=== PATIENT | male | born 1940 | race Caucasian/White ===

== ENCOUNTER 2020-06-03 09:13 | Outpatient (REF) | payer MEDICARE, SELFPAY ==
[2020-06-03 10:24] LABS: Estimated Average Glucose 111 mg/dL; Hemoglobin A1c % 5.5 %
[2020-06-03 10:40] LABS: Alanine Aminotransferase 12 U/L (0-40); Anion Gap 13 (12-20); Blood Urea Nitrogen 25 mg/dL (9-16); Carbon Dioxide 26 mmol/L (22-29); Chloride 104 mmol/L (96-108); Estimated Glomerular Filt Rate 53; Glucose Fasting 104 mg/dL (60-99); Potassium 4.4 mmol/l (3.3-5.1); Sodium 139 mmol/L (135-145)
== END 2020-06-03 09:14 | disposition home or self-care (01) ==
LOC: HO.LAB 09:13
PROVIDERS: PCP Family Medicine; Visit Provider Family Medicine
DX: I10 Essential (primary) hypertension (principal); E11.9 Type 2 diabetes mellitus without complications; E78.00 Pure hypercholesterolemia, unspecified; Z79.899 Other long term (current) drug therapy
CPT/HCPCS: 80051; 82550; 82565; 82947; 83036; 84460; 84520

== ENCOUNTER 2020-06-11 10:43 | Outpatient (REF) | payer MEDICARE, SELFPAY | END 2020-06-11 10:44 | disposition home or self-care (01) | LOC: HO.LAB 10:43 | PROVIDERS: PCP Family Medicine; Visit Provider Internal Medicine | DX: Z20.828 Contact with and (suspected) exposure to other viral communicable diseases (principal) | CPT/HCPCS: 87635 ==

== ENCOUNTER → 2020-07-01 10:39 | Outpatient (REF) | payer MEDICARE, SELFPAY ==
--- NOTE | 2020-07-01 10:48 | ECG_ITS ---
Test Reason : BRADYCARDIA Blood Pressure : / mmHG Vent. Rate : 062 BPM Atrial Rate : 062 BPM P-R Int : 178 ms QRS Dur : 148 ms QT Int : 480 ms P-R-T Axes : 074 -65 011 degrees QTc Int : 487 ms Normal sinus rhythm Right bundle branch block Left anterior fascicular block Bifascicular block Abnormal ECG When compared with ECG of 28-JUN-2013 07:53, T wave inversion no longer evident in Anterior leads Referred By: Matt Nam Electronically Signed By:URBANO SERRANO MD
== END ==
LOC: HO.CARD 10:39
PROVIDERS: PCP Family Medicine; Visit Provider Family Medicine
DX: R00.1 Bradycardia, unspecified (principal)
CPT/HCPCS: 93005

== ENCOUNTER 2020-10-03 10:50 | Inpatient (IN) | payer MEDICARE, SELFPAY ==
[2020-10-03] VITALS (9 sets, daily range): BP systolic 142–203; BP diastolic 70–88; PULSE 58–71; RESP 16–21; TEMP 36.4–37.4; O2SAT 94–97; BMI 33.6
--- NOTE | ~2020-10-03 | FL_ITS ---
EXAMINATION: XR BARIUM SWALLOW CLINICAL INFORMATION: Posttraumatic swallowing problem COMPARISON: None TECHNIQUE: Modified esophagram with speech pathologist. FINDINGS: Patient swallowed combination of material from thin liquid to barium coated cookie. On a few swallows of thin and thick fluid there was minimal penetration which cleared rapidly upon swallowing and coughing. No aspiration was identified. FLUOROSCOPY TIME: 4.3 minutes DOSE AREA PRODUCT: 9.884 Gycentimeter squared FL/FL barium swallow modified IMPRESSION: A few episodes of minimal penetration which cleared upon swallowing and/or coughing with thin and thick liquid.
--- NOTE | ~2020-10-03 | CT_ITS ---
EXAMINATION: CT HEAD WITHOUT CONTRAST CLINICAL INFORMATION: Weakness COMPARISON: None TECHNIQUE: Contiguous axial imaging was performed from the skull base to vertex without intravenous administration of contrast. This CT examination was performed using dose optimization techniques as appropriate, variously including the following: *Automated exposure control *Adjustment of mA and/or kV according to patient size (this includes techniques or standardized protocols for targeted exams where dose is matched to indication/reason for exam; i.e. extremities or head) *Use of iterative reconstruction technique DLP: 739 mGy-cm FINDINGS: There is no evidence of acute intracranial hemorrhage or territorial infarction. No abnormal mass effect or midline shift is seen. Thornton to white matter differentiation is well preserved. No extra-axial fluid collections are identified. Generalized brain parenchymal volume loss. No evidence of hydrocephalus. Patchy and confluent subcortical and periventricular white matter low-attenuation changes. Bilateral basal ganglial lacunar infarcts. The osseous structures and soft tissues are normal. The mastoid air cells and visualized portions of the paranasal sinuses are well aerated. CT/CT head/brain wo con IMPRESSION: No acute intracranial pathology. Severe white matter small vessel ischemic changes and bilateral basal ganglial lacunar infarcts.
--- NOTE | ~2020-10-03 | MR_ITS ---
MRI OF THE BRAIN WITHOUT IV CONTRAST INDICATION: Stroke. COMPARISON: CTA head and neck performed earlier the same day. TECHNIQUE: Multiplanar multisequence MR imaging of the brain was obtained without IV contrast. FINDINGS: There is an acute infarct involving the right [place]. No mass effect and no hemorrhagic transformation. Partial loss of the distal cervical and intradural left vertebral artery flow voids in keeping with the CTA findings described on the earlier CTA of the head and neck. Please see that report for further details. There is global cerebral volume loss there is advanced chronic microangiopathy. There is no hydrocephalus, extra-axial surface collection, or herniation. There is no acute infarct on diffusion-weighted imaging. There is no intracranial hemorrhage on the gradient recalled echo acquisition. The cerebellar tonsils are normally positioned. The craniocervical junction is normal. Osseous marrow signal intensity is homogenous. The visualized soft tissues are unremarkable. MR/MR head/brain wo con IMPRESSION: - There is an acute infarct involving the right t[place]. No mass effect and no hemorrhagic transformation. - Partial loss of the distal cervical and intradural left vertebral artery flow voids in keeping with the CTA findings described on the earlier CTA of the head and neck. Please see that report for further details. - There is global cerebral volume loss there is advanced chronic microangiopathy.
--- NOTE | ~2020-10-03 | CT_ITS ---
EXAMINATION: CT angio head neck CLINICAL INFORMATION: Left-sided facial droop. Left-sided weakness. COMPARISON: CT scan of the head 10/03/2020. TECHNIQUE: [employer] images were obtained. A CT angiogram of the head and neck was performed in the arterial phase after the intravenous administration of 70 mL Omnipaque 350. Pre and delayed postcontrast images of the head were also obtained. MIP reconstructions were generated in multiple orientations at the acquisition workstation. Multiple three-dimensional surface rendered images and maximum intensity projection images were generated on a dedicated 3-D lab workstation. Arterial stenoses are measured in accordance with NASCET criteria or similar method if applicable. This CT examination was performed using dose optimization techniques as appropriate, including one or more of the following: Automated exposure control, iterative reconstruction, and adjustment of technique factors (mA and/or kVp) according to patient size (this includes techniques or standardized protocols for targeted exams where dose is matched to indication/reason for exam). Total exam dose-length product 2372 mGy-cm FINDINGS: Head: There is no acute intracranial hemorrhage. Postcontrast images reveal no abnormal mass or enhancement within the intracranial compartment. No intracranial mass effect or midline shift. Lateral and third ventricles are normal. No hydrocephalus. There are numerous foci of hypoattenuation throughout the periventricular white matter that most likely represent a chronic manifestation of small vessel ischemia. Thornton-white matter differentiation is otherwise preserved and there is no evidence of acute territorial infarct. The calvarium and skull base are intact. CT angiogram neck: Scattered atheromatous calcification involves the aortic arch apex. Origins of the major aortic branches are patent. Common carotid arteries are normal. Partially calcified atheromatous plaque involves both carotid bifurcations. No stenosis of the extracranial internal carotid arteries. Cervical segments of the vertebral arteries are patent. CT angiogram head: There is a 1.2 cm filling defect occluding the left intradural vertebral artery. The acuity of this finding is uncertain. The right intradural vertebral artery is patent and continues as the basilar artery. Partially calcified atheromatous plaque causes mild to moderate irregular narrowing of the vessel. Heavily calcified atheromatous plaque causes mild to moderate narrowing of the cavernous and supraclinoid segments of both internal carotid arteries, greater on the left side. There is diffuse cerebrovascular disease visualized within the anterior, middle, and posterior cerebral artery complexes. Other: Soft tissues of the neck including the thyroid gland are normal. Visualized lung apices are clear. No acute osseous finding. CT/CT angio head neck IMPRESSION: There is a 1.2 cm filling defect within the intradural segment of left vertebral artery. The acuity of this finding is uncertain. It may represent an acute thrombosis. In addition to this finding there is diffuse cerebrovascular disease with moderate irregular segment of narrowing involving multiple branches of the anterior, middle, and posterior cerebral artery complexes. Otherwise no stenosis of the cervical carotid or vertebral arteries. There are numerous chronic small vessel ischemic changes within the periventricular white matter. No evidence of acute territorial infarct or hemorrhage. No abnormal intracranial mass or enhancement.
--- NOTE | ~2020-10-03 | XR_ITS ---
EXAMINATION: XR CHEST CLINICAL INFORMATION: Patient with left-sided weakness COMPARISON: Chest radiograph from 10/03/2020 TECHNIQUE: Frontal view of the chest was obtained. FINDINGS: Bilateral low lung volumes. Prominence of the central pulmonary vasculature. There is no focal consolidation. There is no pneumothorax. The trachea is midline. No large pleural effusion. The cardiac mediastinal silhouette is stable. Aorta demonstrates tortuosity with atherosclerotic calcifications. Degenerative changes of the thoracic spine.1.9 cm sclerotic focus of the right humeral metadiaphysis, stable. Soft tissues are unremarkable. XR/XR chest 1V IMPRESSION: 1. Bilateral low lung volumes. 2. Prominence of the central pulmonary vasculature.
--- NOTE | ~2020-10-03 | XR_ITS ---
EXAMINATION: XR CHEST CLINICAL INFORMATION: Hypoxia COMPARISON: June 03, 2019 TECHNIQUE: AP portable view of the chest was obtained. FINDINGS: There is some indistinctness of the left hemidiaphragm which may be related to atelectasis or possible pneumonitis. Heart normal size. No evidence of pulmonary edema. No pneumothorax or significant pleural effusion. XR/XR chest 1V IMPRESSION: Probable left lower lobe disease which may be related to atelectasis or possible pneumonitis. No evidence of pulmonary edema.
--- NOTE | 2020-10-03 12:23 | ECG_ITS ---
Test Reason : WEAKNESS Blood Pressure : / mmHG Vent. Rate : 066 BPM Atrial Rate : 066 BPM P-R Int : 166 ms QRS Dur : 146 ms QT Int : 468 ms P-R-T Axes : 057 -71 072 degrees QTc Int : 490 ms Normal sinus rhythm Right bundle branch block Left anterior fascicular block Bifascicular block Abnormal ECG When compared with ECG of 01-JUL-2020 11:54, Nonspecific T wave abnormality now evident in Lateral leads Referred By: Cherie Delatorre Electronically Signed By:SOPHIE MCFARLANE MD
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
[2020-10-03 13:21] LABS: MANUAL DIFF FLAG NO
[2020-10-03 13:22] LABS: Basophils Percent Auto 0.4 % (0-2); Eosinophils Absolute Auto 0.1 X10*3/uL (0.0-0.4); Eosinophils Percent Auto 1.4 % (0-4); Hematocrit 40.4 % (42-52); Hemoglobin 13.7 g/dl (14.0-18.0); Imm Gran Abs Auto 0.02 X10*3/uL (0.00-0.03); Imm Gran Pct Auto 0.3 % (0.0-0.4); Lymphocytes Percent Auto 13.4 % (20-40); Mean Corpuscular HGB Conc 33.9 g/dl (31.0-36.0); Mean Corpuscular Volume 88.4 fL (80-98); Mean Platelet Volume 9.5 fL (9.4-12.4); Monocytes Absolute Auto 0.5 X10*3/uL (0.1-1.2); Monocytes Percent Auto 6.9 % (2-11); Neutrophils Percent Auto 77.6 % (45-73); Platelet Count 143 X10*3/uL (160-400); Red Blood Count 4.57 X10*6/uL (4.60-5.80); Red Cell Distribution Width 13.6 % (11.0-16.0); White Blood Count 7.7 X10*3/uL (4.8-10.8)
[2020-10-03 13:29] LABS: INTERNATIONAL NORM RATIO 1.1 (0.9-1.1); Prothrombin Time 12.9 SEC (10.8-13.0)
[2020-10-03 13:31] LABS: Partial Thromboplastin Time 39.8 SEC (24.1-38.0)
[2020-10-03 13:46] LABS: Alanine Aminotransferase 13 U/L (0-40); Albumin Level 4.2 g/dL (3.5-5.0); Alkaline Phosphatase 84 U/L (39-117); Anion Gap 12 (12-20); Aspartate Amino Transferase 22 U/L (5-37); Bilirubin Direct 0.4 mg/dL (0.0-0.5); Bilirubin Total 1.3 mg/dL (0.0-1.0); Blood Urea Nitrogen 29 mg/dL (9-16); Calcium 9.3 mg/dL (8.4-10.2); Carbon Dioxide 30 mmol/L (22-29); Chloride 100 mmol/L (96-108); Creatinine Clr Calc Pharmacy 41.4; Estimated Glomerular Filt Rate 50; Glucose Random 105 mg/dL (60-115); Magnesium 2.4 mg/dL (1.6-2.6); Potassium 4.2 mmol/L (3.3-5.1); Sodium 138 mmol/L (135-145); Total Protein 6.6 g/dL (6.5-8.0)
[2020-10-03 13:55] LABS: B Type Natriuretic Peptide 70 pg/mL (<100); Troponin-I High Sensitivity 619.8 ng/L (<3.5-35.0)
[2020-10-03 14:16] LABS: Influenza A PCR NEGATIVE (Negative); Influenza B PCR NEGATIVE (Negative); Resp Syncy Virus RNA Qual PCR NEGATIVE (Negative); SARS COV2 PCR INHOUSE NEGATIVE (Negative)
[2020-10-03 14:20] LABS: C Reactive Protein 0.89 mg/dL (< or = 0.50)
[2020-10-03 14:56] LABS: Erythrocyte Sedimentation Rate 6 MM/HR (0-15)
[2020-10-03] MEDS: Aspirin 325 MG TABLET PO (15:00)
[2020-10-03] MEDS: Atorvastatin Calcium 80 MG TABLET PO (15:00)
--- NOTE | 2020-10-03 17:45 | PC.NURSE ---
pt incontinuent of large amount of urine. Pt was cleaned and repositioned. He arrived from home in a saturated depends.
[2020-10-03 18:33] LABS: Troponin-I High Sensitivity 540.1 ng/L (<3.5-35.0)
[2020-10-03 19:41] LABS: Glucose Urine UA NEG (NEG); Leukocyte Esterase Urine NEG (NEG); Nitrite Urine NEG (NEG); PH 6.5 (5.0-8.0); Urine Blood NEG (NEG); Urine Ketones NEG (NEG); Urine Protein NEG (NEG-TRACE)
[2020-10-03 19:42] LABS: Appearance Urine CLEAR; Color Urine YELLOW
--- NOTE | 2020-10-03 22:19 | PC.NURSE ---
Assumed care of pt at 1900. At about [id number], pt assessed and neuros assessed. Pt with facial droop, discussed with provider MARY Crespo who states it was present on arrival, with hx of facial droop. CT head negative for acute pathology. Pt with equal strength bilaterally in upper extremities. Pt with also equal dorsiflexion and plantarflexion in bilateral lower extremities. Speech intelligible but slightly garbled.
--- NOTE | 2020-10-03 22:23 | PC.NURSE ---
At approximately 2210, [facility] notified staff auditor of pt's facial droop. department administrator Tosin made this RN aware of concerns. This RN performed neuro assessment. Pt neuros remain unchanged from previous assessment. Dr Giron made aware. RADHA Graham contacted MARY Crespo to discuss pt's presentation and confirm no change in presentation since arrival.
[2020-10-03] MEDS: Doxazosin Mesylate 2 MG TABLET 4 MG PO (23:57)
[2020-10-03] MEDS: Metoprolol Succinate ER 25 MG TAB.ER.24H PO (23:58)
[2020-10-03] MEDS: metFORMIN HCl 500 MG TABLET PO (23:58)
[2020-10-03] MEDS: Donepezil HCl 5 MG TABLET PO (23:58)
--- NOTE | 2020-10-03 23:58 | PC.NURSE ---
PATIENT TOOK MEDS WHOLE. TOLERATED WELL. HEARING AIDE PLACED IN A GREEN CUP AT THE BEDSIDE. LEFT ARM WEAKER THAN RIGHT, SAME EARLIER. BED ADJUSTED, LIGHTS DIMMED AND CURTAIN CLOSED PER PATIENT REQUEST.
[2020-10-04] VITALS (13 sets, daily range): BP systolic 109–207; BP diastolic 72–96; PULSE 16–73; RESP 14–25; TEMP 36.2–37.2; O2SAT 94–97
--- NOTE | 2020-10-04 | ECG_ITS ---
Test Reason : BRADYCARDIA Blood Pressure : / mmHG Vent. Rate : 060 BPM Atrial Rate : 060 BPM P-R Int : 166 ms QRS Dur : 146 ms QT Int : 464 ms P-R-T Axes : 072 -62 041 degrees QTc Int : 464 ms Normal sinus rhythm Right bundle branch block Left anterior fascicular block Bifascicular block Abnormal ECG When compared with ECG of 04-OCT-2020 10:35, No significant change was found Referred By: Rina Akins Electronically Signed By:Pablo Gerber
--- NOTE | 2020-10-04 07:16 | PC.NURSE ---
pt is currently eating breakfast
--- NOTE | 2020-10-04 09:10 | ECG_ITS ---
Test Reason : STROKE Blood Pressure : / mmHG Vent. Rate : 068 BPM Atrial Rate : 068 BPM P-R Int : 154 ms QRS Dur : 140 ms QT Int : 448 ms P-R-T Axes : 057 -72 038 degrees QTc Int : 476 ms Normal sinus rhythm Right bundle branch block Left anterior fascicular block Bifascicular block Abnormal ECG When compared with ECG of 03-OCT-2020 12:51, No significant change was found Referred By: Tessa Bradley Electronically Signed By:SOPHIE MCFARLANE MD
--- NOTE | 2020-10-04 09:15 | PC.NURSE ---
THIS RN SPOKE TO PT'S FOR AN UPDATE, AFTER GETTING OFF THE PHONE THIS RN CONSULTED WITH GIUSEPPE HERNANDEZ IN REGARDS TO PT'S CARE/TREATMENT/HISTORY. IN REPORTS THIS MORNING FROM PRIOR [facility] GL[facility] SPREADER WAS THAT PT'S IS IN THE ED FOR CASE MANAGEMENT PLACEMENT, WITH HX OF RIGHT SIDED FACIAL DROOP AND LEFT SIDED WEAKNESS TO BE AT BASELINE. GIUSEPPE HERNANDEZ, SKYE HERNANDEZ, AND THIS RN TO BEDSIDE TO EVALUATE THE PT, PT FOUND TO HAVE LEFT SIDE FACIAL DROOP/LEFT SIDED WEAKNESS AND SLURRED SPEECH. JAMARCUS, GENETICIST NOTIFIED BY GIUSEPPE AND PLAN FOR HEAD CT AND UPDATED BY SKYE HERNANDEZ.
--- NOTE | 2020-10-04 09:48 | PC.NURSE ---
Pt with left sided facial droop and left extremity weakness. IV inserted and sent for CT/CTA of brain.
[2020-10-04] MEDS: iohexoL 350 MG/ML 100 ML INFUS..BTL IV (10:07)
--- NOTE | 2020-10-04 10:17 | MHC.STROKE ---
Addendum entered by Angie Guidry RN 10/06/20 14:57: I MET WITH THE PATIENT TO REVIEW HIS DIAGNOSIS. ONSET OF SYMPTOMS WAS CLARIFIED. HE SAID ON Monday10/02/20 HE WAS FINE WHEN HE GOT UP THEN ALL OF A SUDDEN AT 0900 HIS LEFT SIDE BECAME WEAK AND HE FELL. HE MENTIONED THAT HE FELL TWICE. HE DID NOT SEEK MEDICAL ATTENTION UNTIL 10/03/20 AM. WE REVIEWED THE MRI SCREENSHOT OF HIS STROKE LOCATION RIGHT ALEX. I DESCRIBED THAT HIS SWALLOWING AND LEFT SIDE WILL BE AFFECTED IN THIS AREA. HIS BP WAS HIGH WHEN HE CAME IN AND HE DID MENTION THAT HE HAS A BP CUFF AT HOME AND CHECKS HIS BP EVERYDAY. IT HAS BEEN HIGH AT TIMES. WE DISCUSSED HIS PLAN OF CARE. I PROVIDED HIM EDUCATION WITH THE STROKE EDUCATION BOOKLET. HE WAS ALERT, ORIENTED AND VERY INTERESTED IN HIS STROKE DIAGNOSIS. I ANSWERED ALL OF HIS QUESTIONS. I WLL CONTINUE TO FOLLOW. Original Note: 09 NOTIFIED BY ED OF INPATIENT STROKE PATIENT. PATIENT INITIALLY ARRIVED VIA EMS ON 10/03/20 AT 1050, PRE-NOTIFIED AT 1041 FOR WEAKNESS, FALL. LAST KNOWN WELL 10/01/20. HE HAD BEEN FEELING WEAK SINCE COVID SHOT ON 10/01/20. BASELINE RIGHT DROOP. NIHSS = 0. CT HEAD, NO BLEED OLD INFARCTS NOTED. BP ELEVATED AT 203/86. HR 69, PASSED SWALLOW SCREEN AT 1200. ASPIRIN GIVEN, CARDIOLOGY CONSULTED (SEE ED NOTE). PMH: HTN, HDL, DM, DEPRESSION, AAA REPAIR, LEFT EAR VENETIE IRA. I SPOKE WITH MARY CHIN THIS AM 0902, SHE NOTIFIED ME OF A CHANGE IN PATIENT'S CONDITION, LEFT HEMIPARESIS, DYSARTHRIA, ATAXIA NIHSS = 14. CT/CTA H/N DONE. OUT OF THE WINDOW FOR TPA BASED ON LKW ON 10/03/20 AT [address]. I DID NOTIFY DR. BONILLA. PATIENT WILL BE ADMITTED FOR CVA. AVOID HYPOTENSION. I WILL CONTINUE TO FOLLOW.
[2020-10-04] MEDS: 0.9 % Sodium Chloride 1,000 ML 999 ML IVCONT (10:26)
[2020-10-04 10:30] LABS: Hemoglobin 13.5 g/dl (14.0-18.0); Imm Gran Abs Auto 0.02 X10*3/uL (0.00-0.03); Imm Gran Pct Auto 0.3 % (0.0-0.4); MANUAL DIFF FLAG SCAN; Mean Corpuscular Volume 88.9 fL (80-98); PLT CLUMP 1; SCAN SMEAR FLAG 1
[2020-10-04 10:31] LABS: Basophils Percent Auto 0.1 % (0-2); Eosinophils Absolute Auto 0.2 X10*3/uL (0.0-0.4); Eosinophils Percent Auto 2.5 % (0-4); Hematocrit 39.4 % (42-52); Lymphocytes Absolute Auto 0.9 X10*3/uL (1.2-4.9); Lymphocytes Percent Auto 12.3 % (20-40); Mean Corpuscular HGB Conc 34.3 g/dl (31.0-36.0); Mean Corpuscular Hemoglobin 30.5 pg (27.0-33.0); Mean Platelet Volume 9.4 fL (9.4-12.4); Monocytes Absolute Auto 0.5 X10*3/uL (0.1-1.2); Monocytes Percent Auto 6.1 % (2-11); Neutrophils Absolute Auto 5.9 X10*3/uL (2.0-8.3); Neutrophils Percent Auto 78.7 % (45-73); Platelet Count 152 X10*3/uL (160-400); Red Blood Count 4.43 X10*6/uL (4.60-5.80); Red Cell Distribution Width 13.7 % (11.0-16.0); White Blood Count 7.5 X10*3/uL (4.8-10.8)
[2020-10-04 10:38] LABS: INTERNATIONAL NORM RATIO 1.1 (0.9-1.1); Prothrombin Time 13.3 SEC (10.8-13.0)
[2020-10-04 11:00] LABS: Alanine Aminotransferase 13 U/L (0-40); Albumin Level 3.8 g/dL (3.5-5.0); Alkaline Phosphatase 78 U/L (39-117); Anion Gap 12 (12-20); Aspartate Amino Transferase 20 U/L (5-37); Bilirubin Direct 0.5 mg/dL (0.0-0.5); Bilirubin Total 1.4 mg/dL (0.0-1.0); Blood Urea Nitrogen 32 mg/dL (9-16); Carbon Dioxide 28 mmol/L (22-29); Chloride 99 mmol/L (96-108); Creatinine Clr Calc Pharmacy 40.5; Estimated Glomerular Filt Rate 48; Glucose Random 138 mg/dL (60-115); Magnesium 2.3 mg/dL (1.6-2.6); Potassium 3.9 mmol/L (3.3-5.1); Sodium 135 mmol/L (135-145); Total Protein 6.1 g/dL (6.5-8.0)
--- NOTE | 2020-10-04 11:00 | PC.NURSE ---
Pt noted to have wheezes to LLL. Occasional use of accessory muscles. Sats 94%. Tessa HERNANDEZ aware of findings. Instructed to DC IVF. PT received about 300ml out of the 1liter bag.
[2020-10-04 11:10] LABS: Troponin-I High Sensitivity 217.7 ng/L (<3.5-35.0)
--- NOTE | 2020-10-04 11:30 | PC.NURSE ---
patient a&ox3, monitor worker intact, vitals stable, patient has audible wheezing, lt facial droop, lt arm flaccid, left leg weakness-unable to follow commands to wiggle toes or move hand, pt denies pain/discomfort, will continue to monitor.
--- NOTE | 2020-10-04 11:59 | PM.NEUROCN ---
History of Present Illness Data of Consult Service Date: 10/04/20 Primary Care Provider: Matt Nam MD 80 years old man who came to hospital yesterday with generalized weakness. He was evaluated for any possible cause but no obvious cause was noted including no indication of a stroke. He was waiting further evaluation by physical therapy and occupational therapy to figure out if he could be sent back to rehab or [place] [facility] versus admission. Apparently there was no obvious reason for admission. Last time he was evaluated at about 10:00 o'clock in the evening. Next morning when nursing evaluated him he was noted to have left-sided weakness suggestive of acute stroke. Because of his underlying condition and significant delay he was not treated with intravenous tPA like treatment. He was not in any distress. Review of Systems Review of Systems: Generalized weakness for which she was in hospital. [facility] Past Medical History Medical History Depression Diabetes 1.5, managed as type 2 Hyperlipidemia Hypertension Social History Social History Alcohol intake: never Smoking Status: Never smoker Use of substances other than those prescribed or required for medical reasons: No Advance Directives: No Advance Directives Information Provided: Yes Meds Allergies Allergy/AdvReac Type Severity Reaction Status Date / Time No Known Allergies Allergy Verified 10/03/20 11:07 [No Known Allergies*] Active Medications: Current Medications Generic Name Dose Route Start Last Admin Trade Name Freq PRN Reason Stop Dose Admin Pharmacy Consult 1 each 10/03/20 12:23 Consult Rx Perform Med Rec MISCELLANE ONCE PRN Consult order Home Medications Medication Instructions Recorded Confirmed Last Taken Type Symbicort 10/03/20 Unknown History aspirin 81 mg PO DAILY 10/03/20 10/03/20 Unknown History bupropion HCl 150 mg PO DAILY 10/03/20 10/04/20 Unknown History cholecalciferol (vitamin D3) 10/03/20 Unknown History [Vitamin D3] donepezil [Aricept] 5 mg PO BEDTIME 10/03/20 10/04/20 Unknown History doxazosin 4 mg PO BEDTIME 10/03/20 10/04/20 Unknown History metformin 500 mg PO BEDTIME 10/03/20 10/04/20 Unknown History metoprolol succinate 25 mg PO BEDTIME 10/03/20 10/04/20 Unknown History simvastatin 20 mg PO BEDTIME 10/03/20 10/04/20 Unknown History valsartan [Diovan] 320 mg PO DAILY 10/03/20 10/04/20 Unknown History Physical Exam Vital Signs: Vital Signs: Last Vital Signs Temp 98.7 F 10/04/20 11:30 Pulse 59 10/04/20 11:30 Resp 17 10/04/20 11:30 BP 139/75 10/04/20 11:30 Pulse Ox 96 10/04/20 11:30 Body Mass Index 33.6 He was alert and awake able to speak though with the mask I was wearing communication was somewhat limited. He was following commands. There was left central type of facial weakness moderate to severe left arm weakness and mild left leg weakness. There was no neglect. Visual goldman seem to be okay. Results Labs CBC & Chem 7: 10/04/20 10:24 10/04/20 10:24 Labs: Short CBC 10/03/20 10/04/20 Range/Units 13:13 10:24 WBC 7.7 7.5 (4.8-10.8) X10*3/uL Hgb 13.7 L 13.5 L (14.0-18.0) g/dl Hct 40.4 L 39.4 L (42-52) % Plt Count 143 L 152 L (160-400) X10*3/uL BMP 10/03/20 10/04/20 13:13 10:24 Sodium 138 135 Potassium 4.2 3.9 Chloride 100 99 Carbon Dioxide 30 H 28 BUN 29 H 32 H Creatinine 1.38 1.41 H Calcium 9.3 9.0 Cardiac Enzymes 10/03/20 Range/Units 13:13 Total Creatine Kinase 334 H D (38-174) U/L Liver Function 10/03/20 10/04/20 Range/Units 13:13 10:24 Total Bilirubin 1.3 H 1.4 H (0.0-1.0) mg/dL Direct Bilirubin 0.4 0.5 (0.0-0.5) mg/dL AST 22 20 (5-37) U/L ALT 13 13 (0-40) U/L Alkaline Phosphatase 84 78 (39-117) U/L Albumin 4.2 3.8 (3.5-5.0) g/dL Urine 10/03/20 Range/Units 19:32 Urine Color YELLOW Urine Appearance CLEAR Urine pH 6.5 (5.0-8.0) Ur Specific [place] 1.010 (1.005-1.025) Urine Protein NEG (NEG-TRACE) MG/DL Urine Glucose (UA) NEG (NEG) MG/DL Assessment and Plan (1) Left hemiparesis: Status: Acute 80 years old man with underlying history of mixed vascular plus degenerative dementia came to hospital with generalized weakness. While he was awaiting further evaluation by physical therapy and occupational therapy for possible transfer to a rehab or [place] [facility], after sleeping overnight, he was noted to have left hemiparesis. This was likely from an ischemic infarction. Onset of symptoms were unclear and I was not even sure if part of this started before he came to hospital. In any case he was not treated with intravenous tPA. His vascular imaging did not reveal any middle cerebral artery disease that could be treated with catheter. At this time my recommendations are to admit him and start him on anti-platelet agent, avoid hypotension, hydrate him, he has consult physical and occupational therapy, have speech and swallowing well, and obtain an MRI brain without contrast for precise definition of his lesion. His troponin level was high suggestive of some element of cardiomyopathy, for which an echocardiogram is recommended
--- NOTE | 2020-10-04 13:16 | PC.NURSE ---
hospitalist in to see patient for admission
--- NOTE | 2020-10-04 13:28 | PC.NURSE ---
patient a&ox3, answering questions appropriately, monitor car operator sinus corazon upper 50s, vitals stable, pt awaiting for inpt bed, will continue to monitor.
--- NOTE | 2020-10-04 13:47 | P.HPHOSP_ITS ---
History of Present Illness Date of Service: 10/04/20 Chief Complaint: weakness This is an 80 year old male who presented to the ED 10/03 with weakness. He received his first covid vaccine earlier in the weak and had been feeling tired since that time. His blood pressure was initially 203/86. His first troponin was elevated at 619. He had no ischemic changes on his EKG and no chest pain. His repeat troponin was lower at 540.1 and the third was 217.7. The remainder of his workup was unremarkable. Given lack of symptoms and decreasing cardiac enzymes, he stayed in the ED to be evaluated by case management for possible placement. This morning he was noted to have left sided facial droop and extremity weakness and well as change in speech. He underwent a brain CTA which showed filling defect within the intradural segment of the left vertebral artery. He was evaluated by neurology and the decision was made to admit him for further management. Review of Systems Review of Systems: Yes all other systems are reviewed and are negative Constitutional: Constitutional: Denies chills and Denies fever(s) Cardiovascular: Cardiovascular: Denies chest pain and Denies dyspnea Respiratory: Respiratory: Denies cough and Denies dyspnea Gastrointestinal: Gastrointestinal: Denies abdominal pain [facility] Medical History (Updated 10/04/20 @ 14:05 by MARY Denton) Dementia Depression Diabetes 1.5, managed as type 2 Hyperlipidemia Hypertension Functional capacity: independent ambulation Family history: reviewed and not pertinent Social History (Updated 10/04/20 @ 14:17 by MARY Denton) Alcohol intake: never Smoking Status: Former smoker Use of substances other than those prescribed or required for medical reasons: No Advance Directives: No Advance Directives Information Provided: Yes Meds Allergies Allergy/AdvReac Type Severity Reaction Status Date / Time No Known Allergies Allergy Verified 10/03/20 11:07 [No Known Allergies*] Active Medications: Current Medications Generic Name Dose Route Start Last Admin Trade Name Freq PRN Reason Stop Dose Admin Pharmacy Consult 1 each 10/03/20 12:23 Consult Rx Perform Med Rec MISCELLANE ONCE PRN Consult order Home Medications Medication Instructions Recorded Confirmed Last Taken Type Symbicort 10/03/20 Unknown History aspirin 81 mg PO DAILY 10/03/20 10/03/20 Unknown History bupropion HCl 150 mg PO DAILY 10/03/20 10/04/20 Unknown History cholecalciferol (vitamin D3) 10/03/20 Unknown History [Vitamin D3] donepezil [Aricept] 5 mg PO BEDTIME 10/03/20 10/04/20 Unknown History doxazosin 4 mg PO BEDTIME 10/03/20 10/04/20 Unknown History metformin 500 mg PO BEDTIME 10/03/20 10/04/20 Unknown History metoprolol succinate 25 mg PO BEDTIME 10/03/20 10/04/20 Unknown History simvastatin 20 mg PO BEDTIME 10/03/20 10/04/20 Unknown History valsartan [Diovan] 320 mg PO DAILY 10/03/20 10/04/20 Unknown History Physical Exam Vital Signs and Narrative: Vital Signs: Last Vital Signs Temp 98.8 F 10/04/20 13:27 Pulse 58 10/04/20 13:27 Resp 18 10/04/20 13:27 BP 109/76 10/04/20 13:27 Pulse Ox 95 10/04/20 13:27 Body Mass Index 33.6 Const: General: comfortable, alert and awake Nutritional Appearance: well nourished Orientation/consciousness: patient oriented x3 HENMT: Head: Yes normocephalic and Yes atraumatic Eyes: Sclerae: sclerae normal Chest: Chest palpation & inspection: normal inspection of the chest Resp: Effort & Inspection: normal respiratory effort and no respiratory distress Cardio: Rate: regular rate Rhythm: regular rhythm GI: Other: ventral hernia Palpation (GI): Soft to palpation and nontender Skin: General skin exam: no rashes or lesions noted Neuro: Other: left hemiparesis, left facial droop, tongue deviation to left side, garbled speech. Full ROM right upper and lower extremities General: patient oriented x3 Speech: Abnormal speech present garbled Results Labs CBC and Chem 7: 10/04/20 10:24 10/04/20 10:24 Labs: Laboratory Results - last 24 hr 10/03/20 10/03/20 10/03/20 13:13 13:13 13:14 MCV MCH MCHC RDW Plt Count MPV Immature Gran % (Auto) Neut % (Auto) Lymph % (Auto) [place] % (Auto) Eos % (Auto) Baso % (Auto) Lymph # (Auto) [place] # (Auto) Eos # (Auto) Baso # (Auto) Abs Immat Gran (auto) Absolute Neuts (auto) Absolute Nucleated RBC Nucleated RBC % (auto) Smear Tech's Comments ESR 6 PT INR APTT Anion Gap Estim Creat Clear Calc Estimated GFR Random Glucose Calcium Magnesium Total Bilirubin Direct Bilirubin AST ALT Alkaline Phosphatase Total Creatine Kinase 334 H D Troponin I High Sens 619.8 H C-Reactive Protein 0.89 H B-Natriuretic Peptide 70 Total Protein Albumin Urine Color Urine Appearance Urine pH Ur Specific [place] Urine Protein Urine Glucose (UA) Urine Ketones Urine Blood Urine Nitrite Ur Leukocyte Esterase Coronavirus (PCR) Influenza Type A (PCR) Influenza Type B (PCR) RSV RNA Qual (PCR) 10/03/20 10/03/20 10/03/20 13:14 17:48 19:32 MCV MCH MCHC RDW Plt Count MPV Immature Gran % (Auto) Neut % (Auto) Lymph % (Auto) [place] % (Auto) Eos % (Auto) Baso % (Auto) Lymph # (Auto) [place] # (Auto) Eos # (Auto) Baso # (Auto) Abs Immat Gran (auto) Absolute Neuts (auto) Absolute Nucleated RBC Nucleated RBC % (auto) Smear Tech's Comments ESR PT INR APTT Anion Gap Estim Creat Clear Calc Estimated GFR Random Glucose Calcium Magnesium Total Bilirubin Direct Bilirubin AST ALT Alkaline Phosphatase Total Creatine Kinase Troponin I High Sens 540.1 H C-Reactive Protein B-Natriuretic Peptide Total Protein Albumin Urine Color YELLOW Urine Appearance CLEAR Urine pH 6.5 Ur Specific [place] 1.010 Urine Protein NEG Urine Glucose (UA) NEG Urine Ketones NEG Urine Blood NEG Urine Nitrite NEG Ur Leukocyte Esterase NEG Coronavirus (PCR) NEGATIVE Influenza Type A (PCR) NEGATIVE Influenza Type B (PCR) NEGATIVE RSV RNA Qual (PCR) NEGATIVE 10/04/20 10/04/20 10/04/20 10:24 10:24 10:24 MCV 88.9 MCH 30.5 MCHC 34.3 RDW 13.7 Plt Count 152 L MPV 9.4 Immature Gran % (Auto) 0.3 Neut % (Auto) 78.7 H Lymph % (Auto) 12.3 L [place] % (Auto) 6.1 Eos % (Auto) 2.5 Baso % (Auto) 0.1 Lymph # (Auto) 0.9 L [place] # (Auto) 0.5 Eos # (Auto) 0.2 Baso # (Auto) 0.0 Abs Immat Gran (auto) 0.02 Absolute Neuts (auto) 5.9 Absolute Nucleated RBC 0.000 Nucleated RBC % (auto) 0.0 Smear Tech's Comments Not Reportable ESR PT 13.3 H INR 1.1 APTT 41.0 H Anion Gap 12 Estim Creat Clear Calc 40.5 Estimated GFR 48 Random Glucose 138 H Calcium 9.0 Magnesium 2.3 Total Bilirubin 1.4 H Direct Bilirubin 0.5 AST 20 ALT 13 Alkaline Phosphatase 78 Total Creatine Kinase Troponin I High Sens C-Reactive Protein B-Natriuretic Peptide Total Protein 6.1 L Albumin 3.8 Urine Color Urine Appearance Urine pH Ur Specific [place] Urine Protein Urine Glucose (UA) Urine Ketones Urine Blood Urine Nitrite Ur Leukocyte Esterase Coronavirus (PCR) Influenza Type A (PCR) Influenza Type B (PCR) RSV RNA Qual (PCR) 10/04/20 10:24 MCV MCH MCHC RDW Plt Count MPV Immature Gran % (Auto) Neut % (Auto) Lymph % (Auto) [place] % (Auto) Eos % (Auto) Baso % (Auto) Lymph # (Auto) [place] # (Auto) Eos # (Auto) Baso # (Auto) Abs Immat Gran (auto) Absolute Neuts (auto) Absolute Nucleated RBC Nucleated RBC % (auto) Smear Tech's Comments ESR PT INR APTT Anion Gap Estim Creat Clear Calc Estimated GFR Random Glucose Calcium Magnesium Total Bilirubin Direct Bilirubin AST ALT Alkaline Phosphatase Total Creatine Kinase Troponin I High Sens 217.7 H D C-Reactive Protein B-Natriuretic Peptide Total Protein Albumin Urine Color Urine Appearance Urine pH Ur Specific [place] Urine Protein Urine Glucose (UA) Urine Ketones Urine Blood Urine Nitrite Ur Leukocyte Esterase Coronavirus (PCR) Influenza Type A (PCR) Influenza Type B (PCR) RSV RNA Qual (PCR) Imaging Radiologist's Impressions: Impressions Head CT 10/03/20 13:10 IMPRESSION: No acute intracranial pathology. Severe white matter small vessel ischemic changes and bilateral basal ganglial lacunar infarcts. Chest X-Ray 10/03/20 13:11 IMPRESSION: Probable left lower lobe disease which may be related to atelectasis or possible pneumonitis. No evidence of pulmonary edema. Chest X-Ray 10/04/20 09:10 IMPRESSION: 1. Bilateral low lung volumes. 2. Prominence of the central pulmonary vasculature. Head/Neck CTA 10/04/20 09:34 IMPRESSION: There is a 1.2 cm filling defect within the intradural segment of left vertebral artery. The acuity of this finding is uncertain. It may represent an acute thrombosis. In addition to this finding there is diffuse cerebrovascular disease with moderate irregular segment of narrowing involving multiple branches of the anterior, middle, and posterior cerebral artery complexes. Otherwise no stenosis of the cervical carotid or vertebral arteries. There are numerous chronic small vessel ischemic changes within the periventricular white matter. No evidence of acute territorial infarct or hemorrhage. No abnormal intracranial mass or enhancement. Assessment and Plan (1) Left hemiparesis: Status: Acute This is an 80 year old male with DM, HTN, HLD, AAA s/p repair who presented to the ED with weakness now found to have left hemiparesis and facial droop stroke left side weakness, facial droop Brain CTA with filling defect with in left vertebral artery eval by neuro. rec admission, asa ,statin, mri not a candidate for tpa -tele monitoring, frequent neuro checks -MRI, echo -PT, OT, speech evaluation -aspirin, statin -BP meds on hold CKD 3 SCr near baseline, follow renal function closely DM Hold metformin POC's on lower side. q2h POC. no SSI for now Hypertension, elevated in 200s on arrival Hold blood pressure meds in setting of stroke Follow BP meds closely Elevated trops Initial trop 650, no ekg changes, repeat continue to trend down no chest pain -echo Hyperlipidemia Changed to high-intensity statin Dementia Continue Aricept DVT prophylaxis-heparin Code status-full code This case was discussed with Dr. Wallace
[2020-10-04 13:48] LABS: B Type Natriuretic Peptide 49 pg/mL (<100)
[2020-10-04 14:33] LABS: Glucose, Whole Blood 69 mg/dL (60-115)
--- NOTE | 2020-10-04 15:10 | PM.EVENT ---
Event Note Date of Service: 10/04/20 Event Note: Patient seen and examined. Case discussed with MARY Ku. Agree with her history and physical + plan as documented above 80 yo M being admitted for acute CVA. For full details see H&P. Stroke work up.
[2020-10-04] MEDS: Dextrose 5 % and 0.9 % NaCl 1,000 ML 100 ML IVCONT (15:33)
--- NOTE | 2020-10-04 15:42 | PC.NURSE ---
patient returned from MRI, given bed bath as he was wet from urinating, pt was moved to an inpt bed for comfort, rn cardiac cath reapplied, ivf started per order, will recheck poc in 30 minutes, will continue to monitor.
--- NOTE | 2020-10-04 16:02 | PC.NURSE ---
Patient a&o, cardiac exercise specialist intact, vitals stable, ivf running per order, pt continues to have left facial droop, lt arm flaccid and lt leg weakness-pt is able to move left leg minimally, no c/o pain or discomfort, call sneed within reach, will continue to monitor.
[2020-10-04 16:23] LABS: Glucose, Whole Blood 85 mg/dL (60-115)
[2020-10-04] MEDS: Dextrose 5 % and 0.45 % NaCl 1,000 ML 80 ML IVCONT (17:31)
--- NOTE | 2020-10-04 18:15 | PC.NURSE ---
patient a&ox3, full bed change performed as patient is incontinent, vitals obtained, pt hypertensive, sinus corazon cardiac rn, patient speech is clearer, lt facial droop has lessoned, pt now able to lift/hold left arm and able to squeeze this nurses hand upon demand, left leg has movement but still unable to purposeful move on demand, patient continues to have audible wheezing, will continue to monitor.
[2020-10-04 18:52] LABS: Glucose, Whole Blood 96 mg/dL (60-115)
--- NOTE | 2020-10-04 19:10 | PC.NURSE ---
provider notified about pts bp, will continue to monitor and document, no interventions at this time.
[2020-10-04] MEDS: Heparin Sodium,Porcine 5,000 UNIT/ML VIAL 5000 UNIT SUBCUT (19:20)
--- NOTE | 2020-10-04 20:16 | PC.NURSE ---
patients hr dipping into the 40s at time, provider- Tashi was notified, will repeat ekg per provider request, patient is currently asymptomatic of the HR- continues to be a&o, watching tv, blood pressure has decreased some, pt neuro- lt facial droop has lessoned, lt arm patient still has purposeful movement and left leg he moves on bed but not on command, he answers all questions appropriately and has been speaking with his on the phone, will continue to monitor.
[2020-10-04 21:49] LABS: Glucose, Whole Blood 94 mg/dL (60-115)
--- NOTE | 2020-10-04 22:15 | PC.NURSE ---
patient a&o, surgical lead sinus corazon-ekg was performed & provider is aware, patient has no c/o pain or discomfort, patient continues to have purposeful movement to LUE and able to lift/move on command, lt facial droop mild, LLE patient continues to move but is unable to follow command, he offers no other complaints at this time, will continue to monitor.
[2020-10-05] VITALS (7 sets, daily range): BP systolic 172–183; BP diastolic 72–90; PULSE 58–77; RESP 16–20; TEMP 36.4–36.9; O2SAT 94–98
[2020-10-05 00:01] LABS: Glucose, Whole Blood 80 mg/dL (60-115)
[2020-10-05 01:08] LABS: Glucose, Whole Blood 85 mg/dL (60-115)
[2020-10-05 05:14] LABS: Glucose, Whole Blood 79 mg/dL (60-115)
[2020-10-05] MEDS: Heparin Sodium,Porcine 5,000 UNIT/ML VIAL 5000 UNIT SUBCUT ×2 (06:32→18:12)
[2020-10-05 07:29] LABS: Estimated Average Glucose 108 mg/dL; Hemoglobin A1c % 5.4 %
--- NOTE | 2020-10-05 08:22 | PC.NURSE ---
Dr Wallace at the bedside for assessment
[2020-10-05 08:55] LABS: MANUAL DIFF FLAG NO
[2020-10-05 09:00] LABS: Basophils Percent Auto 0.2 % (0-2); Eosinophils Absolute Auto 0.3 X10*3/uL (0.0-0.4); Hematocrit 43.1 % (42-52); Hemoglobin 14.5 g/dl (14.0-18.0); Imm Gran Abs Auto 0.04 X10*3/uL (0.00-0.03); Imm Gran Pct Auto 0.4 % (0.0-0.4); Lymphocytes Absolute Auto 1.3 X10*3/uL (1.2-4.9); Lymphocytes Percent Auto 13.5 % (20-40); Mean Corpuscular HGB Conc 33.6 g/dl (31.0-36.0); Mean Platelet Volume 9.9 fL (9.4-12.4); Monocytes Absolute Auto 0.6 X10*3/uL (0.1-1.2); Monocytes Percent Auto 6.1 % (2-11); Neutrophils Absolute Auto 7.5 X10*3/uL (2.0-8.3); Neutrophils Percent Auto 76.8 % (45-73); Platelet Count 148 X10*3/uL (160-400); Red Blood Count 4.84 X10*6/uL (4.60-5.80); Red Cell Distribution Width 13.6 % (11.0-16.0); White Blood Count 9.8 X10*3/uL (4.8-10.8)
--- NOTE | 2020-10-05 09:05 | PC.NURSE ---
Addendum entered by Mary Angel RN 10/05/20 09:18: Per permissive HTN at this time. Call out to [facility]. Original Note: Pt asking for water but he is NPO due to failed swallow eval. Awaiting [facility] consult. Mouth swabbed with water. VS obtained with elevated SBP possibly due to NPO status and holding home meds. notified.
[2020-10-05] MEDS: 0.9 % Sodium Chloride Flush 3 ML SYRINGE IVFLUSH ×2 (09:28→18:13)
[2020-10-05 09:33] LABS: Anion Gap 15 (12-20); Blood Urea Nitrogen 28 mg/dL (9-16); Calcium 9.3 mg/dL (8.4-10.2); Carbon Dioxide 25 mmol/L (22-29); Chloride 102 mmol/L (96-108); Cholesterol 122 mg/dL; Creatinine Clr Calc Pharmacy 45.3; Estimated Glomerular Filt Rate 55; Glucose Random 77 mg/dL (60-115); HDL Cholesterol 32 mg/dL; LDL Cholesterol Calculated 61 mg/dl; Sodium 138 mmol/L (135-145); Triglycerides 146 mg/dL
--- NOTE | 2020-10-05 10:06 | HO.PM.IMPN ---
Subjective Subjective Date of Service: 10/05/20 Interval History: seen and examined this AM in the ED reports hunger. reports his L arm appears to be improving denies chest pain. main thing he is asking for his food ROS General - no fevers or chills Cardiovascular - no chest pain Respiratory - no shortness of breath or cough Abdominal- no abdominal pain, nausea, vomiting, diarrhea; +hungry Neuro - L sided weakness Physical Exam Vital Signs: Vital Signs: Last Vital Signs Temp 97.5 F 10/05/20 09:04 Pulse 58 10/05/20 09:04 Resp 17 10/05/20 09:04 BP 183/84 H 10/05/20 09:04 Pulse Ox 95 10/05/20 09:04 Body Mass Index 33.6 Const: General: comfortable, alert and awake Nutritional Appearance: well nourished Orientation/consciousness: patient oriented x3 HENMT: Head: Yes normocephalic and Yes atraumatic Eyes: Sclerae: sclerae normal Chest: Chest palpation & inspection: normal inspection of the chest Resp: Effort & Inspection: normal respiratory effort and no respiratory distress Cardio: Rate: regular rate Rhythm: regular rhythm GI: Other: ventral hernia Palpation (GI): Soft to palpation and nontender Skin: General skin exam: no rashes or lesions noted Neuro: Other: LUE conservation or heritage architect strength improved and able to now lift LUE some what LLE strength stable, 3+/5 speech more coherent General: patient oriented x3 Objective Data Current Medications Generic Name Dose Route Start Last Admin Trade Name Freq PRN Reason Stop Dose Admin Acetaminophen 650 mg 10/04/20 14:20 Acetaminophen 325 Mg Tablet PO Q6H PRN Pain, Mild (Pain Scale 1-3) Aspirin 81 mg 10/05/20 09:00 10/05/20 09:28 Aspirin Enteric Coated 81 Mg Tablet. PO Not Given DAILY BRENDA Atorvastatin Calcium 80 mg 10/05/20 09:00 10/05/20 09:28 Atorvastatin Calcium 80 Mg Tablet PO Not Given DAILY [facility] Docusate Sodium 100 mg 10/04/20 14:20 Docusate Sodium 100 Mg Capsule PO DAILY PRN Constipation Donepezil HCl 5 mg 10/05/20 21:00 Donepezil Hcl 5 Mg Tablet PO BEDTIME [facility] Heparin Sodium (Porcine) 5,000 unit 10/04/20 18:00 10/05/20 06:32 Heparin Sodium,Porcine 5,000 Unit/Ml Vial SUBCUT 5,000 unit Q12H BRENDA Administration Ondansetron HCl 4 mg 10/04/20 14:20 Ondansetron Hcl 4 Mg/2 Ml Vial IVPUSH Q8H PRN Nausea and Vomiting Pharmacy Consult 1 each 10/03/20 12:23 Consult Rx Perform Med Rec MISCELLANE ONCE PRN Consult order Sodium Chloride 3 ml 10/04/20 16:00 10/05/20 09:28 0.9 % Sodium Chloride Flush 3 Ml Syringe IVFLUSH 3 ml QSHIFT BRENDA Administration Labs CBC & Chem 7: 10/05/20 08:20 10/05/20 08:20 Assessment and Plan (1) Left hemiparesis: Status: Acute Assessment and Plan: This is an 80 year old male with DM, HTN, HLD, AAA s/p repair who presented to the ED with weakness now found to have left hemiparesis and facial droop 1. Acute CVA, R pontine L hemiplegia and speech appear to be improving failed RN swallow eval yesterday, await formal speech/swallow evaluation keep NPO for now PT/OT ASA (rectal for now), statin allow for permissive HTN Neurology input appreciated 2. Elevated trop-I downtrending no chest pain check Echo 3. HTN permission HTN as above 4. DM poc qidac hold meds until diet started 5. HLD statin 6. CKD 3 SCr near baseline, follow renal function closely 7. Dementia aricept Full Code DVT pptx, subcut. hepain Will update the family.
--- NOTE | 2020-10-05 11:27 | MHC.CM.PN ---
spoke with pts pt had no setvceis ptrior to admisison ot recommending acute rehab is agreeable referral will, be made she will then deceide whichis her first choice
--- NOTE | 2020-10-05 11:33 | MHC.CM.PN ---
imm addendum will be mailing imm to family via certified mail brittney to find imm addendum in [employer] spoke with today
[2020-10-05] MEDS: Aspirin 300 MG SUPP.RECT PR (11:45)
--- NOTE | 2020-10-05 11:49 | PC.NURSE ---
Aspirin given [place]. Speech pathology in room for evaluation.
--- NOTE | 2020-10-05 13:34 | PC.NURSE ---
Pt refusing NGT placement at this time. Pt was educated on the need for the NGT placement but he continues to refuse. Dr.Patel liang.
--- NOTE | 2020-10-05 14:20 | CA_ITS ---
Transthoracic Echocardiogram Patient (Last, First, Middle): Leo Mason, Gender: Male Date of : 1940 Age: 80 Procedure Date: 10/05/2020 Procedure Type: Transthoracic Echocardiogram Location: ER Height: 160.02 cm Weight: 86.18 kg BSA: 1.89 m2 Heart Rate: bpm BP: 189 / 99 mmHg Brusher Operator: VALERIA Smith MD: Rina HERNANDEZ Symptoms: stroke protocol Study Quality: Fair Conclusions: - Normal left ventricular size and systolic function. - E/E prime ratio is between 8 and 15 consistent with indeterminate filling pressures. - The basal inferior segment is akinetic. - No significant valvular or pericardial pathology. Findings Left Ventricle Normal left ventricular size and systolic function. There is moderately increased left ventricular wall thickness. The visually estimated ejection fraction is between 55-60%. There is evidence of regional wall motion abnormalities. Abnormal diastolic function is noted. Spectral Doppler is indicative of an impaired relaxation filling pattern. E/E prime ratio is between 8 and 15 consistent with indeterminate filling pressures. Wall Motion Rest Echo Findings The basal inferior segment is akinetic. Right Ventricle Normal right ventricular cavity size and systolic function. Atria The left atrium is moderately dilated. There is no evidence of interatrial shunt by color Doppler. The right atrium is normal in size. Aortic Valve There is a normal trileaflet aortic valve. There is mild thickening of the aortic valve. There is no aortic valve stenosis. There is no aortic valve regurgitation. Mitral Valve There is moderate mitral annular calcification. There is no mitral valve regurgitation. There is no mitral valve stenosis. Pulmonic Valve Normal pulmonic valve structure and function. Tricuspid Valve Normal tricuspid valve structure and function. There is trace tricuspid valve regurgitation. Normal right atrial pressure. There is no evidence of pulmonary hypertension. Great Vessels All visible segments of the aorta are normal in size. The visualized portions of the pulmonary artery and branches are normal. Venous The inferior vena cava is normal in size and collapses greater than 50% with inspiration. Pericardium/Pleural There is no evidence of pericardial effusion. Prior Study Comparison No prior study available for comparison. Measurements 2D Linear Measurements IVSd: 1.23 0.6-0.9/0.6-1.0 cm LVIDd: 3.94 3.9-5.3/4.2-5.9 cm LVIDd Index: 2.08 2.4-3.2/2.2-3.1 cm/m2 LVIDs: 2.55 2.0-3.6 cm LVPWd: 1.25 0.7-1.1 cm Ao Root: 3.50 2.1-3.5 cm LA Diam: 3.70 2.7-3.8/3.0-4.0 cm LAIDs Index: 1.96 1.5-2.3 cm/m2 LV Mass: 211.58 67-162/88-224 g LV Mass Index: 111.95 43-95/49-115 g/m2 LVOT Diam: 2.20 3.0+(-)1.3 cm 2D Systolic Function EF 4C: 53.60 >55% EF 2C: 61.20 >55% EF BiP: 57.10 >55% Mitral Valve MV Pk E: 0.55 MV PK A: 1.17 MV Decel Time: 292.00 E/A: 0.50 E'Lateral: 5.33 E'Medial: 4.35 E/E' Med: 12.70 E/E' Lat: 10.30 PHT: 86.00 MVA PHT: 2.56 Decel Heard: 1.89 Aortic Valve AoV Pk Florentin: 1.55 AoV Mn Florentin: 1.09 AoV VTI: 0.34 AoV Pk Grad: 10.00 Aov Mn Grad: 5.00 TUNDE Cont.VTI: 2.72 LVOT LVOT Pk Florentin: 1.19 LVOT Mn Florentin: 0.72 LVOT VTI: 0.24 LVOT Pk Grad: 6.00 LVOT Mn Grad: 2.00 LVOT Diam: 2.20 LVOT Area: 3.80 Diastolic Function MV Pk E: 0.55 MV Pk A: 1.17 E/A: 0.50 E'Medial: 4.35 E/E' Med: 12.70 E' Laterial: 5.33 E/E' Lat: 10.30 Tricuspid Valve TR Pk Florentin: 1.87 TR Pk Grad: 14.00 RA Press: 3.00 RVSP: 17.00 Great Vessels Aorta Ao Root-2D: 3.50 2.0-3.7 cm Ao Asc: 3.20 2.1-3.4 cm Updated in Other Vendor System with Status of Final Pablo Gerber MD electronically signed on 10/05/2020 6:10:14 PM with status of Final
[2020-10-05 16:28] LABS: Glucose, Whole Blood 76 mg/dL (60-115)
[2020-10-05 20:37] LABS: Glucose, Whole Blood 62 mg/dL (60-115)
[2020-10-05 22:39] LABS: Glucose, Whole Blood 189 mg/dL (60-115)
[2020-10-06] VITALS (7 sets, daily range): BP systolic 146–178; BP diastolic 74–94; PULSE 61–82; RESP 18–19; TEMP 36.4–37.4; O2SAT 93–95; BMI 33.6
[2020-10-06] MEDS: 0.9 % Sodium Chloride Flush 3 ML SYRINGE IVFLUSH ×3 (00:18→21:25)
[2020-10-06] MEDS: Heparin Sodium,Porcine 5,000 UNIT/ML VIAL 5000 UNIT SUBCUT ×2 (05:03→16:59)
[2020-10-06 05:30] LABS: Glucose, Whole Blood 79 mg/dL (60-115)
--- NOTE | 2020-10-06 09:19 | PM.NEUROCN ---
History of Present Illness Data of Consult Service Date: 10/06/20 Primary Care Provider: Matt Nam MD 80 years old man who I recently saw in emergency room with acute left hemiparesis. Now he was getting physical therapy and they were having difficulty getting him out of bed. He was not putting any effort. [facility] Past Medical History Medical History (Updated 10/06/20 @ 09:21 by Ildefonso Salinas MD) Dementia Depression Diabetes 1.5, managed as type 2 Hyperlipidemia Hypertension Functional capacity: independent ambulation Family History Family history: reviewed and not pertinent Social History Social History (Updated 10/04/20 @ 14:17 by MARY Denton) Household Members: Spouse Housing: House Do you presently have visiting nurse or other home services: No Alcohol intake: never Smoking Status: Former smoker Use of substances other than those prescribed or required for medical reasons: No Currently Displaying Signs/Symptoms of Drug Intoxication Withdrawal: No Have you been hit, kicked, punched, or otherwise hurt by someone within the past year? If so, by whom?: No Do you feel safe in your current relationship?: Yes Is there a partner from a previous relationship who is making you feel unsafe now?: No Are you made to feel afraid or neglected: No Advance Directives: No Advance Directives Information Provided: Yes Do you have thoughts of harming others: None Do you have a plan to hurt others: No Plan Recently lost weight without trying: No service: No Meds Allergies Allergy/AdvReac Type Severity Reaction Status Date / Time No Known Allergies Allergy Verified 10/03/20 11:07 [No Known Allergies*] Active Medications: Current Medications Generic Name Dose Route Start Last Admin Trade Name Freq PRN Reason Stop Dose Admin Acetaminophen 650 mg 10/04/20 14:20 Acetaminophen 325 Mg Tablet PO Q6H PRN Pain, Mild (Pain Scale 1-3) Aspirin 81 mg 10/05/20 09:00 10/06/20 07:42 Aspirin Enteric Coated 81 Mg Tablet. PO Not Given DAILY BRENDA Atorvastatin Calcium 80 mg 10/05/20 09:00 10/06/20 07:42 Atorvastatin Calcium 80 Mg Tablet PO Not Given DAILY BRENDA Docusate Sodium 100 mg 10/04/20 14:20 Docusate Sodium 100 Mg Capsule PO DAILY PRN Constipation Donepezil HCl 5 mg 10/05/20 21:00 10/05/20 19:15 Donepezil Hcl 5 Mg Tablet PO Not Given BEDTIME [facility] Heparin Sodium (Porcine) 5,000 unit 10/04/20 18:00 10/06/20 05:03 Heparin Sodium,Porcine 5,000 Unit/Ml Vial SUBCUT 5,000 unit Q12H BRENDA Administration Ondansetron HCl 4 mg 10/04/20 14:20 Ondansetron Hcl 4 Mg/2 Ml Vial IVPUSH Q8H PRN Nausea and Vomiting Pharmacy Consult 1 each 10/03/20 12:23 Consult Rx Perform Med Rec MISCELLANE ONCE PRN Consult order Sodium Chloride 3 ml 10/04/20 16:00 10/06/20 07:52 0.9 % Sodium Chloride Flush 3 Ml Syringe IVFLUSH 3 ml QSHIFT BRENDA Administration Home Medications Medication Instructions Recorded Confirmed Last Taken Type Symbicort 10/03/20 Unknown History aspirin 81 mg PO DAILY 10/03/20 10/03/20 Unknown History bupropion HCl 150 mg PO DAILY 10/03/20 10/04/20 Unknown History cholecalciferol (vitamin D3) 10/03/20 Unknown History [Vitamin D3] donepezil [Aricept] 5 mg PO BEDTIME 10/03/20 10/04/20 Unknown History doxazosin 4 mg PO BEDTIME 10/03/20 10/04/20 Unknown History metformin 500 mg PO BEDTIME 10/03/20 10/04/20 Unknown History metoprolol succinate 25 mg PO BEDTIME 10/03/20 10/04/20 Unknown History simvastatin 20 mg PO BEDTIME 10/03/20 10/04/20 Unknown History valsartan [Diovan] 320 mg PO DAILY 10/03/20 10/04/20 Unknown History Physical Exam Vital Signs: Vital Signs: Last Vital Signs Temp 98.5 F 10/06/20 08:00 Pulse 61 10/06/20 08:56 Resp 19 10/06/20 08:00 BP 154/74 H 10/06/20 08:56 Pulse Ox 93 10/06/20 08:56 Body Mass Index 33.6 Minimal to none left sided facial weakness. Speech was dysarthric. Face was pendulous. Teeth were missing. He was alert and awake with normal spontaneity, fluency and comprehension of speech. He was able to lift his arm at shoulder against gravity but could not move his hand. He was able to lift his leg against gravity but barely minimum. There was no neglect. Results Labs CBC & Chem 7: 10/05/20 08:20 10/05/20 08:20 Labs: BMP 10/05/20 08:20 Sodium 138 Potassium 4.0 Chloride 102 Carbon Dioxide 25 BUN 28 H Creatinine 1.26 Calcium 9.3 His MRI of brain revealed a moderate-size right basis pontis acute ischemic infarction with quite significant bilateral chronic microvascular ischemic changes and moderate cerebral atrophy. Assessment and Plan (1) Acute cerebral infarction: Status: Acute 80 years old man with underlying significant chronic microvascular ischemic disease and cerebral atrophy presented with left hemiparesis caused by a right pontine ischemic infarct. This type of infarct could be significantly disabling resulting in significant weakness. At this time mainstay of management is transferred to rehab and continuing medicine for further stroke prevention including anti-platelet agent, statin and good blood pressure control.
[2020-10-06] MEDS: Dextrose 5 % 1,000 ML 50 ML IVCONT (11:43)
[2020-10-06] MEDS: Aspirin Enteric Coated 81 MG TABLET.DR PO (11:43)
[2020-10-06] MEDS: Atorvastatin Calcium 80 MG TABLET PO (11:43)
--- NOTE | 2020-10-06 13:49 | P.PNIM_ITS ---
Subjective Subjective Date of Service: 10/06/20 Interval History: the patient was seen and evaluated this morning Laying in bed, left-sided weakness still more notable in the lower extremity Denies any fever, chills or shortness of breath No reported other overnight events. Systemic review: No fever, chills or weakness No chest pain, palpitation No shortness of breath or coughing No abdominal pain, nausea or vomiting No urinary symptoms No any rash or wounds Physical Exam Vital Signs: Vital Signs: Last Vital Signs Temp 98.0 F 10/06/20 11:47 Pulse 76 10/06/20 11:47 Resp 19 10/06/20 11:47 BP 154/74 H 10/06/20 08:56 Pulse Ox 95 10/06/20 11:47 Body Mass Index 33.6 Const: Other: Constitutional : Alert, oriented, not in distress Neck : Normal inspection, Supple Cardiovascular : RRR, S1 S2, no lower extremity edema Respiratory : Good bilateral air entry, no crackles, wheezes or rhonchi Gastrointestinal: soft, lax, Normal bowel sounds, Non tender Skin : Warm/Dry, No rash Neurological : Alert & oriented x3, LUE reports analysis manager strength improved and able to now lift LUE some what LLE strength stable, 3+/5 speech more coherent Objective Data Current Medications Generic Name Dose Route Start Last Admin Trade Name Joniq PRN Reason Stop Dose Admin Acetaminophen 650 mg 10/04/20 14:20 Acetaminophen 325 Mg Tablet PO Q6H PRN Pain, Mild (Pain Scale 1-3) Aspirin 81 mg 10/05/20 09:00 10/06/20 11:43 Aspirin Enteric Coated 81 Mg Tablet. PO 81 mg DAILY BRENDA Administration Atorvastatin Calcium 80 mg 10/05/20 09:00 10/06/20 11:43 Atorvastatin Calcium 80 Mg Tablet PO 80 mg DAILY BRENDA Administration Docusate Sodium 100 mg 10/04/20 14:20 Docusate Sodium 100 Mg Capsule PO DAILY PRN Constipation Donepezil HCl 5 mg 10/05/20 21:00 10/05/20 19:15 Donepezil Hcl 5 Mg Tablet PO Not Given BEDTIME BRENDA Heparin Sodium (Porcine) 5,000 unit 10/04/20 18:00 10/06/20 05:03 Heparin Sodium,Porcine 5,000 Unit/Ml Vial SUBCUT 5,000 unit Q12H BRENDA Administration Dextrose 1,000 mls @ 50 mls/hr 10/06/20 10:45 10/06/20 11:43 D5w IVCONT 50 mls/hr .Q20H BRENDA Administration Ondansetron HCl 4 mg 10/04/20 14:20 Ondansetron Hcl 4 Mg/2 Ml Vial IVPUSH Q8H PRN Nausea and Vomiting Pharmacy Consult 1 each 10/03/20 12:23 Consult Rx Perform Med Rec MISCELLANE ONCE PRN Consult order Sodium Chloride 3 ml 10/04/20 16:00 10/06/20 11:43 0.9 % Sodium Chloride Flush 3 Ml Syringe IVFLUSH Not Given QSHIFT BRENDA Labs CBC & Chem 7: 10/05/20 08:20 10/05/20 08:20 Assessment and Plan (1) Left hemiparesis: Status: Acute (2) Acute cerebral infarction: Status: Acute (3) CVA (cerebral vascular accident): Status: Acute Assessment and Plan: This is an 80 year old male with DM, HTN, HLD, AAA s/p repair who presented to the ED with weakness now found to have left hemiparesis and facial droop 1. Acute CVA, R pontine L hemiplegia and speech appear to be improving formal speech/swallow evaluation; pureed with honey thick PT/OT ASA , statin allow for permissive HTN Neurology input appreciated 2. Elevated trop-I downtrended no chest pain Echo, normal LV 3. HTN permission HTN as above 4. DM poc qidac hold meds until diet started 5. HLD statin 6. CKD 3 SCr near baseline, follow renal function closely 7. Dementia aricept Full Code DVT pptx, subcut. hepain Will update the family.
[2020-10-06 14:21] LABS: Glucose, Whole Blood 102 mg/dL (60-115)
[2020-10-06 16:40] LABS: Glucose, Whole Blood 125 mg/dL (60-115)
--- NOTE | 2020-10-06 16:50 | MHC.SL.POC ---
Name: Leo Mason Date of : 1940 Age: 80 Date of Registration: 10/04/20 MBSS completed on 10/07 revealed the following impairments: ORAL PHASE: -Slowed tongue motion -Moderate oral residue -Delayed initiation of pharyngeal swallow PHARYNGEAL PHASE: - Penetration with thin liquids - Fatigue - Moderate vallecular residue RECOMMENDATIONS: AUT[employer]UTCH SPECIALIST recommends CHOPPED/ADVANCED (NDD3) solids and NECTAR THICK liquids with PILLS WHOLE IN PUREE. Pt requires total assistance due to residual weakness. [place] aspiration precautions apply: -upright at 90 degrees when eating and drinking -small bites and sips -chew food well -moisten dry food with sauces and gravies for ease of mastication if needed -alternate solids with liquids -NO straws -oral checks for clearance -cues to double swallow -frequent oral care
[2020-10-06 20:06] LABS: Glucose, Whole Blood 131 mg/dL (60-115)
[2020-10-06] MEDS: Donepezil HCl 5 MG TABLET PO (21:24)
[2020-10-07] VITALS (7 sets, daily range): BP systolic 157–184; BP diastolic 71–96; PULSE 58–91; RESP 18–23; TEMP 36.6–37.3; O2SAT 94–96
[2020-10-07 05:31] LABS: Anion Gap 13 (12-20); Blood Urea Nitrogen 25 mg/dL (9-16); Calcium 8.8 mg/dL (8.4-10.2); Carbon Dioxide 28 mmol/L (22-29); Chloride 100 mmol/L (96-108); Creatinine Clr Calc Pharmacy 44.6; Estimated Glomerular Filt Rate 54; Glucose Random 130 mg/dL (60-115); Potassium 3.6 mmol/L (3.3-5.1); Sodium 137 mmol/L (135-145)
[2020-10-07] MEDS: Dextrose 5 % 1,000 ML 50 ML IVCONT (05:48)
[2020-10-07] MEDS: Heparin Sodium,Porcine 5,000 UNIT/ML VIAL 5000 UNIT SUBCUT ×2 (05:48→17:01)
[2020-10-07 07:29] LABS: Glucose, Whole Blood 139 mg/dL (60-115)
[2020-10-07] MEDS: Aspirin Enteric Coated 81 MG TABLET.DR PO (08:49)
[2020-10-07] MEDS: Atorvastatin Calcium 80 MG TABLET PO (08:49)
[2020-10-07] MEDS: Valsartan 40 MG TABLET PO (08:49)
[2020-10-07] MEDS: 0.9 % Sodium Chloride Flush 3 ML SYRINGE IVFLUSH ×2 (08:50→17:01)
--- NOTE | 2020-10-07 11:26 | HO.PM.IMPN ---
Subjective Subjective Date of Service: 10/07/20 Interval History: the patient was seen and evaluated this morning Laying in bed, left-sided weakness seems a little better in UE Able to eat and swallow, diet advanced Denies any fever, chills or shortness of breath No reported other overnight events. Systemic review: No fever, chills or weakness No chest pain, palpitation No shortness of breath or coughing No abdominal pain, nausea or vomiting No urinary symptoms No any rash or wounds Physical Exam Vital Signs: Vital Signs: Last Vital Signs Temp 98.7 F 10/07/20 11:09 Pulse 78 10/07/20 11:09 Resp 20 10/07/20 11:09 BP 162/76 H 10/07/20 11:09 Pulse Ox 95 10/07/20 11:09 Body Mass Index 33.6 Const: Other: Constitutional : Alert, oriented, not in distress Neck : Normal inspection, Supple Cardiovascular : RRR, S1 S2, no lower extremity edema Respiratory : Good bilateral air entry, no crackles, wheezes or rhonchi Gastrointestinal: soft, lax, Normal bowel sounds, Non tender Skin : Warm/Dry, No rash Neurological : Alert & oriented x3, LUE dental intern strength improved and able to now lift partially LUE against gravity LLE strength stable, 3+/5 speech more coherent Objective Data Current Medications Generic Name Dose Route Start Last Admin Trade Name Freq PRN Reason Stop Dose Admin Acetaminophen 650 mg 10/04/20 14:20 Acetaminophen 325 Mg Tablet PO Q6H PRN Pain, Mild (Pain Scale 1-3) Aspirin 81 mg 10/05/20 09:00 10/07/20 08:49 Aspirin Enteric Coated 81 Mg Tablet. PO 81 mg DAILY BRENDA Administration Atorvastatin Calcium 80 mg 10/05/20 09:00 10/07/20 08:49 Atorvastatin Calcium 80 Mg Tablet PO 80 mg DAILY BRENDA Administration Docusate Sodium 100 mg 10/04/20 14:20 Docusate Sodium 100 Mg Capsule PO DAILY PRN Constipation Donepezil HCl 5 mg 10/05/20 21:00 10/06/20 21:24 Donepezil Hcl 5 Mg Tablet PO 5 mg BEDTIME BRENDA Administration Heparin Sodium (Porcine) 5,000 unit 10/04/20 18:00 10/07/20 05:48 Heparin Sodium,Porcine 5,000 Unit/Ml Vial SUBCUT 5,000 unit Q12H BRENDA Administration Dextrose 1,000 mls @ 50 mls/hr 10/06/20 10:45 10/07/20 05:48 D5w IVCONT 50 mls/hr .Q20H BRENDA Administration Metoprolol Succinate 25 mg 10/07/20 21:00 Metoprolol Succinate Er 25 Mg Tab.Er.24h PO BEDTIME BRENDA Protocol Ondansetron HCl 4 mg 10/04/20 14:20 Ondansetron Hcl 4 Mg/2 Ml Vial IVPUSH Q8H PRN Nausea and Vomiting Pharmacy Consult 1 each 10/03/20 12:23 Consult Rx Perform Med Rec MISCELLANE ONCE PRN Consult order Sodium Chloride 3 ml 10/04/20 16:00 10/07/20 08:50 0.9 % Sodium Chloride Flush 3 Ml Syringe IVFLUSH 3 ml QSHIFT BRENDA Administration Valsartan 40 mg 10/07/20 09:00 10/07/20 08:49 Valsartan 40 Mg Tablet PO 40 mg DAILY BRENDA Administration Protocol Labs CBC & Chem 7: 10/05/20 08:20 10/07/20 04:18 Assessment and Plan (1) Left hemiparesis: Status: Acute (2) Acute cerebral infarction: Status: Acute (3) CVA (cerebral vascular accident): Status: Acute Assessment and Plan: This is an 80 year old male with DM, HTN, HLD, AAA s/p repair who presented to the ED with weakness now found to have left hemiparesis and facial droop 1. Acute CVA, R pontine L hemiplegia and speech appear to be improving MBBS done, [employer] rec; advance to chopped with nectar thick PT/OT ASA , statin allow for permissive HTN Neurology input appreciated 2. Elevated trop-I downtrended no chest pain Echo, normal LV 3. uncontrolled HTN HTN noticed to be elevated in 180s restart night time Metoprolol start low dose Valsartan Monitor BP 4. DM poc qidac hold meds until diet started 5. HLD statin 6. CKD 3 SCr near baseline, follow renal function closely 7. Dementia aricept Full Code DVT pptx, subcut. hepain Will update the family.
[2020-10-07 11:53] LABS: Glucose, Whole Blood 135 mg/dL (60-115)
--- NOTE | 2020-10-07 13:04 | MHC.CM.PN ---
DP Male 80 DX CVA. Pt qualifies for ACUTE REHAB per PT and OT. Referrals had been sent to the 3 Acute rehabs. Information update sent today. [facility] ([facility]st choice) has accepted the Pt for tomorrow pending Auth. The Pt and have been notified of DC tomorrow to [facility] via BLS. CM will continue to follow.
[2020-10-07 16:28] LABS: Glucose, Whole Blood 116 mg/dL (60-115)
[2020-10-07 19:44] LABS: Glucose, Whole Blood 146 mg/dL (60-115)
[2020-10-07] MEDS: Donepezil HCl 5 MG TABLET PO (20:54)
[2020-10-07] MEDS: Metoprolol Succinate ER 25 MG TAB.ER.24H PO (20:54)
[2020-10-08] VITALS: BP 157/69; PULSE 62; RESP 18; TEMP 36.7; O2SAT 94
[2020-10-08] MEDS: 0.9 % Sodium Chloride Flush 3 ML SYRINGE IVFLUSH ×2 (01:53→09:04)
[2020-10-08 04:00] VITALS: BP 157/86; PULSE 59; RESP 18; TEMP 36.8; O2SAT 94
[2020-10-08] MEDS: Heparin Sodium,Porcine 5,000 UNIT/ML VIAL 5000 UNIT SUBCUT (06:01)
[2020-10-08 06:50] LABS: Anion Gap 12 (12-20); Blood Urea Nitrogen 23 mg/dL (9-16); Calcium 8.7 mg/dL (8.4-10.2); Carbon Dioxide 28 mmol/L (22-29); Chloride 102 mmol/L (96-108); Creatinine Clr Calc Pharmacy 45.7; Estimated Glomerular Filt Rate 56; Glucose Random 111 mg/dL (60-115); Potassium 3.8 mmol/L (3.3-5.1); Sodium 138 mmol/L (135-145)
[2020-10-08 07:58] LABS: Glucose, Whole Blood 115 mg/dL (60-115)
[2020-10-08 08:00] VITALS: BP 154/85; PULSE 56; RESP 20; TEMP 36.9; O2SAT 94
[2020-10-08] MEDS: Aspirin Enteric Coated 81 MG TABLET.DR PO (09:03)
[2020-10-08] MEDS: Atorvastatin Calcium 80 MG TABLET PO (09:03)
[2020-10-08] MEDS: Valsartan 80 MG TABLET PO (09:03)
[2020-10-08 10:53] LABS: COVID-19 Test Negative (Negative)
--- NOTE | 2020-10-08 11:37 | P.DS_ITS ---
DS: Providers Provider Date of Service: 10/08/20 Date of admission: 10/04/20 13:35 Primary care physician: Matt Nam MD Consults: 10/04/20 09:10 Consult to Neurology Stat Consulting Provider: [facility] Reason for consultation: ed room 21 ? cva left sided facial droop Has provider been notified: Yes DS: Diagnosis Discharge Diagnosis (1) Left hemiparesis: Status: Acute (2) Acute cerebral infarction: Status: Acute (3) CVA (cerebral vascular accident): Status: Acute (4) Diabetes 1.5, managed as type 2: Status: Acute (5) Hypertension: Status: Acute DS: Medications Discharge Medications Home Medications: Home Medications Medication Instructions Recorded Confirmed Symbicort 10/03/20 bupropion HCl 150 mg PO DAILY 10/03/20 10/04/20 cholecalciferol (vitamin D3) 10/03/20 [Vitamin D3] donepezil [Aricept] 5 mg PO BEDTIME 10/03/20 10/04/20 doxazosin 4 mg PO BEDTIME 10/03/20 10/04/20 metformin 500 mg PO BEDTIME 10/03/20 10/04/20 metoprolol succinate 25 mg PO BEDTIME 10/03/20 10/04/20 Previous Rx's Medication Instructions Recorded aspirin 81 mg PO DAILY #30 tab 10/08/20 atorvastatin 80 mg PO DAILY #30 tab 10/08/20 valsartan 80 mg PO DAILY #30 tab 10/08/20 DS: Summary Hospital Course Hospital Course: Admission note HPI This is an 80 year old male who presented to the ED 10/03 with weakness. He received his first covid vaccine earlier in the weak and had been feeling tired since that time. His blood pressure was initially 203/86. His first troponin was elevated at 619. He had no ischemic changes on his EKG and no chest pain. His repeat troponin was lower at 540.1 and the third was 217.7. The remainder of his workup was unremarkable. Given lack of symptoms and decreasing cardiac enzymes, he stayed in the ED to be evaluated by case management for possible placement. This morning he was noted to have left sided facial droop and extremity weakness and well as change in speech. He underwent a brain CTA which showed filling defect within the intradural segment of the left vertebral artery. He was evaluated by neurology and the decision was made to admit him for further management. Hospital course The patient was admitted to the hospital after developing left-sided weakness and trouble speaking while in the emergency waiting for placement. Images of hit CTA and brain MRI were consistent with acute infarct involving the right hemipons with no hemorrhage transformation. Filling defect of the left colleen tebral artery. He was evaluated by Dr. Salinas from Neurology and treated with aspirin, high-dose atorvastatin and evaluated by speech therapy who advanced his diet slowly to chopped and nectar thick fluid at the time of discharge having a modified barium swallow study.. Evaluated by Physical therapy who recommended acute term rehab. He is overall progression during the hospital stay showed some improvement in the left upper extremity weakness and speech. His swallowing ability improved as well. He still have significant left-sided hemiplegia. His blood pressure was kept on the elevated side during the hospital stay and his blood pressure medications were introduced slowly. He was started on metoprolol at bedtime and valsartan was decreased from 360 to 80 mg at the day of discharge with blood pressure around 150s over 80s. Will need to continue monitoring the blood pressure and adjusted dose as needed. Time Spent with Patient Time attestation: Total time spent providing and/or coordinating discharge services: Discharge coordination time: Greater than 30 minutes Quality: Stroke Pt Provided Written Stroke Discharge Instructions: Patient given written information Physical Exam Vital Signs: Vital Signs: Last Vital Signs Temp 98.5 F 10/08/20 08:00 Pulse 56 10/08/20 08:00 Resp 20 10/08/20 08:00 BP 154/85 H 10/08/20 08:00 Pulse Ox 94 10/08/20 08:00 Body Mass Index 33.6 Const: Other: Constitutional : Alert, oriented, not in distress Neck : Normal inspection, Supple Cardiovascular : RRR, S1 S2, no lower extremity edema Respiratory : Good bilateral air entry, no crackles, wheezes or rhonchi Gastrointestinal: soft, lax, Normal bowel sounds, Non tender Skin : Warm/Dry, No rash Neurological : Alert & oriented x3, 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 and able to now lift partially LUE against gravity LLE strength stable, 3+/5 speech more coherent DS: Data Data Completed and Pending Labs on day of discharge: Laboratory Results - last 24 hr 10/07/20 10/07/20 10/07/20 11:47 16:03 19:39 Sodium Potassium Chloride Carbon Dioxide Anion Gap BUN Creatinine Estim Creat Clear Calc Estimated GFR POC Glucose 135 H 116 H 146 H Random Glucose Calcium COVID-19 ([facility]) COVID-19 Clin Com 10/08/20 10/08/20 10/08/20 06:02 07:55 10:20 Sodium 138 Potassium 3.8 Chloride 102 Carbon Dioxide 28 Anion Gap 12 BUN 23 H Creatinine 1.25 Estim Creat Clear Calc 45.7 Estimated GFR 56 POC Glucose 115 Random Glucose 111 Calcium 8.7 COVID-19 ([facility]) Negative COVID-19 Clin Com See Note Discharge Plan Discharge Patient Disposition: Xfer Inpatient Rehab Fac Referrals: Matt Nam MD [Primary Care Provider] - Discharge Medications: New atorvastatin 80 mg Tablet 80 mg PO DAILY Qty: 30 RF: 0 valsartan 80 mg Tablet 80 mg PO DAILY Qty: 30 RF: 1 aspirin 81 mg Tablet,Delayed Release (Dr/Ec) 81 mg PO DAILY Qty: 30 RF: 0 Continued metformin 500 mg tablet 500 mg PO BEDTIME RF: 0 bupropion HCl 150 mg tablet sustained-release 12 hr 150 mg PO DAILY RF: 0 donepezil [Aricept] 5 mg tablet 5 mg PO BEDTIME RF: 0 doxazosin 4 mg tablet 4 mg PO BEDTIME RF: 0 metoprolol succinate 25 mg tablet extended release 24 hr 25 mg PO BEDTIME RF: 0 cholecalciferol (vitamin D3) [Vitamin D3] 25 mcg (1,000 unit) Tablet RF: 0 Symbicort RF: 0 Discontinued simvastatin 20 mg tablet 20 mg PO BEDTIME RF: 0 valsartan [Diovan] 320 mg tablet 320 mg PO DAILY RF: 0 aspirin 81 mg Tablet 81 mg PO DAILY RF: 0 Discharge Orders: Discharge Order (Routine); Ordered 10/08/20 Ordered By: Mendoza Rehman Diet: advance to usual diet Activity on Discharge: As tolerated Stand Alone Forms: Patient Portal Discharge page Care Plan Goals: Read below Health Concerns: Read below Plan of Treatment: You were admitted to the hospital for evaluation of left-sided weakness as a result of acute stroke. You were evaluated by neurologist Dr. Salinas and treated with aspirin and anticholesterol medication. Evaluated by Physical therapy who recommended acute rehab transfer. Your blood pressure was partially controlled with metoprolol and valsartan. Will need to do an to monitor your blood pressures and adjusted dose of valsartan up as needed. Avoid low blood pressure. Continue aspirin and statin as prescribed
== END 2020-10-08 13:30 | DRG 65 ==
LOC: HO.ED 10-04 10:56 → HO.EDOVER 10-04 13:53 → HO.S3 10-05 14:06 → HO.IMC 10-06 17:11
PROVIDERS: Physician Assistant; Physician Assistant Medical; Admitting Provider Family Medicine; Emergency Provider Emergency Medicine Emergency Medical Services; PCP Family Medicine; Visit Provider Student in an Organized Health Care Education/Training Program
DX: I63.89 Other cerebral infarction (principal); G81.94 Hemiplegia, unspecified affecting left nondominant side; R29.714 NIHSS score 14; R29.810 Facial weakness; R74.8 Abnormal levels of other serum enzymes; E78.5 Hyperlipidemia, unspecified; I12.9 Hypertensive chronic kidney disease with stage 1 through stage 4 chronic kidney disease, or unspecified chronic kidney disease; F03.90 Unspecified dementia, unspecified severity, without behavioral disturbance, psychotic disturbance, mood disturbance, and anxiety; N18.30 Chronic kidney disease, stage 3 unspecified; E11.22 Type 2 diabetes mellitus with diabetic chronic kidney disease; Z20.822 Contact with and (suspected) exposure to COVID-19; Z79.82 Long term (current) use of aspirin; Z79.84 Long term (current) use of oral hypoglycemic drugs; Z79.899 Other long term (current) drug therapy
CPT/HCPCS: 0241U; 36415; 70450; 70496; 70498; 70551; 71045; 74230; 80048; 80061; 80076; 81003; 82550; 82947; 83036; 83735; 83880; 84484; 85025; 85610; 85652; 85730; 86140; 87635; 92526; 92610; 92611; 93005; 93306; 96360; 97110; 97112; 97162; 97166; 97530; 97535; 99285; Q9967